=== PATIENT | female | born 1980 | race Caucasian/White ===

== ENCOUNTER 2022-10-02 23:06 | Emergency (ER) | payer SELFPAY ==
[2022-10-03] MEDS ORDERED: diphenhydrAMINE 50 MG/ML SDV IM ONE (00:32)
[2022-10-03 00:36] LABS: ESTIMATED GFR 81 mL/min (>60)
[2022-10-03] MEDS ORDERED: Glucagon,Human Recombinant 1 MG Vial IM PRN (00:39)
[2022-10-03] MEDS ORDERED: 50% Dextrose in Water 50 ML Syringe IVPUSH PRN (00:39)
[2022-10-03] MEDS ORDERED: Insulin Regular, Human 100 Units/ML 3 ML Vial SUBCUT ONE (00:39)
== END 2022-10-03 01:47 | disposition home or self-care (01) ==
LOC: JP.ED 23:06
DX: M79.651 Pain in right thigh (principal); E11.9 Type 2 diabetes mellitus without complications; J45.909 Unspecified asthma, uncomplicated; F17.210 Nicotine dependence, cigarettes, uncomplicated; Z86.16 Personal history of COVID-19; Z88.0 Allergy status to penicillin; Z88.1 Allergy status to other antibiotic agents; Z88.2 Allergy status to sulfonamides; Z79.4 Long term (current) use of insulin
CPT/HCPCS: 36415; 80053; 82550; 85025; 85379; 86140; 96372; 99283; 99284; J1200; J1815-GY

== ENCOUNTER 2024-04-08 17:09 | Emergency (ER) | payer OTHER, MEDICAID ==
[2024-04-08 18:05] LABS: BASOPHILS ABSOLUTE AUTO 0.11 K/uL (0.00-0.10); BASOPHILS PERCENT AUTO 0.8 % (0.1-1.3); EOSINOPHILS ABSOLUTE AUTO 0.21 K/uL (0.00-0.40); EOSINOPHILS PERCENT AUTO 1.5 % (0.0-5.4); HEMATOCRIT 29.9 % (34.3-46.0); HEMOGLOBIN 10.5 g/dL (11.2-15.5); IMMATURE GRAN ABSOLUTE AUTO 0.08 K/uL (0.00-0.23); IMMATURE GRAN PERCENT AUTO 0.6 % (0.0-0.7); LYMPHOCYTES ABSOLUTE AUTO 2.48 K/uL (0.8-3.3); LYMPHOCYTES PERCENT AUTO 17.7 % (11.4-47.7); MEAN CORPUSCULAR HEMOGLOBIN 27.7 pg (31.6-35.5); MEAN CORPUSCULAR HGB CONC 35.1 g/dL (31.6-35.5); MEAN CORPUSCULAR VOLUME 78.9 fL (81.4-99.0); MONOCYTES ABSOLUTE AUTO 0.63 K/uL (0.20-0.90); MONOCYTES PERCENT AUTO 4.5 % (3.3-12.6); NEUTROPHILS ABSOLUTE AUTO 10.48 K/uL (1.0-7.6); NEUTROPHILS PERCENT AUTO 74.9 % (40.0-78.1); PLATELET COUNT,PLT 321 K/uL (130-375); RED BLOOD CELL COUNT 3.79 M/uL (3.77-5.24)
[2024-04-08] MEDS: Sodium Chloride 0.9% 1,000 ML IV ONE (18:11)
[2024-04-08 18:25] LABS: ALANINE AMINOTRANSFERASE,ALT 31 U/L (12-78); ALBUMIN 2.8 g/dL (3.4-5.0); ALKALINE PHOSPHATASE 124 U/L (46-116); ASPARTATE AMNIOTRANSFERASE,AST 16 U/L (15-37); BILIRUBIN TOTAL 0.3 mg/dL (0.2-1.0); BLOOD UREA NITROGEN,BUN 12 mg/dL (7-18); C-REACTIVE PROTEIN 2.01 mg/dL (<0.50); CARBON DIOXIDE,CO2 22 mmol/L (21-32); CHLORIDE,CL 104 mmol/L (100-108); CREATININE 1.2 mg/dL (0.6-1.0); EST CRCL DRUG DOSING (CG) 55.42 mL/min; ESTIMATED GFR 57 mL/min (>60); GLUCOSE RANDOM 262 mg/dL (74-106); POTASSIUM,K 3.8 mmol/L (3.6-5.2); PROTEIN TOTAL,TP 6.1 g/dL (6.4-8.2); SODIUM,NA 137 mmol/L (140-148)
[2024-04-08 18:26] LABS: A/G RATIO 0.9 (1.2-2.2); ANION GAP 14.8 mmol/L (5.0-14.0)
[2024-04-08 18:27] LABS: SEDIMENTATION RATE MANUAL 47 mm/hr (0-25)
[2024-04-08 18:44] LABS: APPEARANCE,URINE CLEAR (CLEAR); BILIRUBIN,URINE NEGATIVE (NEGATIVE); COLOR,URINE YELLOW (YELLOW); GLUCOSE,URINE 250 mg/dL (NEGATIVE); KETONES,URINE NEGATIVE (NEGATIVE); LEUKOCYTE ESTERASE,URINE NEGATIVE (NEGATIVE); NITRITE,URINE NEGATIVE (NEGATIVE); OCCULT BLOOD,URINE SMALL (NEGATIVE); PROTEIN,URINE >=300 mg/dL (NEGATIVE); UROBILINOGEN,URINE 0.2 EU/dL (0.2-1.0)
[2024-04-08 18:48] LABS: RBC,URINE 0-5 (0-5)
[2024-04-08 18:49] LABS: AMORPHOUS SEDIMENT,URINE RARE; BACTERIA,URINE FEW; EPITHELIAL CELLS,URINE FEW; MUCUS,URINE NOT SEEN; WBC,URINE NOT SEEN (0-5)
[2024-04-08] MEDS ORDERED: Glucagon,Human Recombinant 1 MG Vial IM PRN (19:54)
[2024-04-08] MEDS ORDERED: 50% Dextrose in Water 50 ML Syringe IVPUSH PRN (19:54)
[2024-04-08] MEDS: Insulin Glargine,Human Rec. Analog 100 Units/ML 3 ML Pen SUBCUT SCH (20:16)
[2024-04-08] MEDS: Insulin Lispro 100 Unit/ML 3 ML KwikPen SUBCUT ONE (20:16)
[2024-04-08] MEDS: Ondansetron 4 MG Tab.DIS PO ONE (20:19)
[2024-04-08] MEDS: Loperamide 2 MG Cap PO ONE (20:19)
== END 2024-04-08 20:25 | disposition home or self-care (01) ==
LOC: JP.ED 17:09
DX: E11.65 Type 2 diabetes mellitus with hyperglycemia (principal); Z86.16 Personal history of COVID-19; Z90.49 Acquired absence of other specified parts of digestive tract; Z79.84 Long term (current) use of oral hypoglycemic drugs; Z79.4 Long term (current) use of insulin; Z88.0 Allergy status to penicillin; Z88.1 Allergy status to other antibiotic agents; Z88.2 Allergy status to sulfonamides
CPT/HCPCS: 36415; 80053; 81001; 85025; 85651; 86140; 96360; 99284; A9270; J1815; J7030; Q0162